=== PATIENT | female | born 1945 | race African-American/Black ===

== ENCOUNTER 2023-06-12 17:58 | Inpatient (IN) | payer OTHER ==
[2023-06-12] MEDS ORDERED: Ondansetron ODT 4 MG TAB SL PRN (19:00)
[2023-06-12] MEDS ORDERED: Ondansetron PF 4 MG/2 ML Vial IVP PRN (19:00)
[2023-06-12] MEDS ORDERED: Acetaminophen 325 MG TAB PO PRN (19:00)
[2023-06-12] MEDS ORDERED: hydrALAZINE 20 MG/ML VIAL SLOW IVP SCH (19:00)
[2023-06-12] MEDS ORDERED: Albuterol 200 PUFF (6.7GM INHALER) INH PRN (19:51)
[2023-06-12] MEDS ORDERED: hydrALAZINE 20 MG/ML VIAL SLOW IVP PRN (20:02)
[2023-06-12] MEDS: Atorvastatin Calcium 40 MG TAB PO SCH (20:46)
[2023-06-12] MEDS ORDERED: Carvedilol 25 MG TAB PO SCH (21:00)
[2023-06-12] MEDS ORDERED: Enoxaparin 120 MG/0.8 ML SYRINGE SC SCH (21:00)
[2023-06-13] MEDS ORDERED: Enoxaparin 120 MG/0.8 ML SYRINGE SC SCH (00:01)
[2023-06-13] MEDS: Nitroglycerin 2% Ointment 1 INCH/1 GM Packet TOP SCH ×2 (00:08→06:24)
[2023-06-13 05:25] LABS: #Eosinphils 0.2 thou/uL (0.0-0.7); #Neutrophils 3.9 thou/uL (1.40-6.50); %Basophils 0.4 % (0.0-1.0); %Eosinophils 2.3 % (0.0-10.0); %Lymphocytes 31.4 % (21.0-51.0); %Neutrophils 52.5 % (42.0-75.0); Hematocrit 36.5 % (36.0-47.0); Hemoglobin 12.2 g/dL (12.0-16.0); Mean Corpuscular HGB CONC 33.4 g/dL (32.0-36.0); Mean Corpuscular Hemoglobin 29.3 pg (27.0-31.0); Mean Corpuscular Volume 87.5 fl (78.0-98.0); Mean Platelet Volume 10.9 fL (7.4-10.4); Platelet Count 229 10x3/uL (130-400); RBC Distribution Width 14.1 % (11.5-14.5); Red Blood Cell (RBC) Count 4.17 mill/uL (4.20-5.40); White Blood Cell (WBC) Count 7.4 10x3/uL (4.8-10.8)
[2023-06-13 05:53] LABS: Anion Gap 15 mmol/L (10-20); BUN (Urea Nitrogen) 9 mg/dL (9.8-20.1); Calc. Creatinine Clearance 94 mL/min (70-130); Calcium 9.4 mg/dL (7.8-10.44); Carbon Dioxide 25 mmol/L (23-31); Chloride 105 mmol/L (98-107); Estimated GFR 70; Glucose 96 mg/dL (83-110); Potassium 2.9 mmol/L (3.5-5.1); Sodium 142 mmol/L (136-145)
[2023-06-13 05:57] LABS: Troponin I 0.023 ng/mL (< 0.028)
[2023-06-13] MEDS: Furosemide 40 MG/4 ML VIAL SLOW IVP SCH ×2 (06:23→16:40)
[2023-06-13] MEDS: HYDROcodone/Acetaminophen 10/325 mg Tablet PO PRN ×2 (06:27→14:04)
[2023-06-13] MEDS ORDERED: Lisinopril 10 MG TAB PO SCH (09:00)
[2023-06-13] MEDS ORDERED: Potassium Chloride 20 MEQ TAB PO SCH (10:00)
[2023-06-13] MEDS: Aspirin 81 mg Enteric Coated Tablet PO SCH (11:27)
[2023-06-13] MEDS: Gabapentin 300 MG CAP PO SCH (11:27)
[2023-06-13] MEDS: Lisinopril 20 MG TAB PO SCH (11:28)
[2023-06-13] MEDS: Penicillin V Potassium 250 MG TAB PO SCH (11:30)
[2023-06-13] MEDS: Enoxaparin 120 MG/0.8 ML SYRINGE SC SCH (16:39)
[2023-06-13] MEDS: Atorvastatin Calcium 40 MG TAB PO SCH (20:37)
[2023-06-14] MEDS: Enoxaparin 120 MG/0.8 ML SYRINGE SC SCH ×2 (01:35→12:48)
[2023-06-14 05:05] LABS: Anion Gap 14 mmol/L (10-20); BUN (Urea Nitrogen) 14 mg/dL (9.8-20.1); Calc. Creatinine Clearance 74 mL/min (70-130); Calcium 9.7 mg/dL (7.8-10.44); Carbon Dioxide 29 mmol/L (23-31); Chloride 101 mmol/L (98-107); Estimated GFR 53; Glucose 103 mg/dL (83-110); Magnesium 1.9 mg/dL (1.6-2.6); Potassium 3.1 mmol/L (3.5-5.1); Sodium 141 mmol/L (136-145)
[2023-06-14] MEDS ORDERED: Electrolyte Replacement Protocol 1 EACH FS SCH (05:24)
[2023-06-14] MEDS: Furosemide 40 MG/4 ML VIAL SLOW IVP SCH ×2 (05:43→12:48)
[2023-06-14 06:19] LABS: Bacteria/HPF 4+ HPF (None Seen); Bilirubin Negative (Negative); Blood, Urine Negative (Negative); CAUTI Indications for Culture Dysuria,urgency,freq; Clarity Turbid (Clear); Glucose, Urine (Dipstick) Normal (Negative); Ketone, Urine Negative (Negative); Leukocyte 500 Leu/uL (Negative); Nitrite Negative (Negative); Protein, Urine (Dipstick) 50 mg/dL (Neg-Trace); RBC/HPF 0-3 HPF (0-3); Squamous Epithelial 0-3 HPF (0-3); Urobilinogen Normal mg/dL (Less than 2); WBC/HPF Greater than 50 HPF (0-3)
[2023-06-14 06:23] LABS: Urine Culture Reflex Yes Yes
[2023-06-14] MEDS ORDERED: Potassium Chloride 20 MEQ TAB PO SCH (08:00)
[2023-06-14] MEDS ORDERED: Magnesium 2 GM/50 ML(in water) 2 GM in Premix Bag 1 BAG IVPB SCH (08:00)
[2023-06-14] MEDS: Aspirin 81 mg Enteric Coated Tablet PO SCH (08:19)
[2023-06-14] MEDS: Gabapentin 300 MG CAP PO SCH (08:19)
[2023-06-14] MEDS: Lisinopril 20 MG TAB PO SCH (08:20)
[2023-06-14] MEDS: Penicillin V Potassium 250 MG TAB PO SCH (08:20)
[2023-06-14] MEDS: HYDROcodone/Acetaminophen 10/325 mg Tablet PO PRN (08:45)
[2023-06-14] MEDS: cefTRIAXone\\ROCEPHIN 1 GM in Sodium Chloride 0.9% 100 ML IVPB SCH (12:48)
[2023-06-14] MEDS: Atorvastatin Calcium 40 MG TAB PO SCH (20:22)
[2023-06-15] MEDS: Enoxaparin 120 MG/0.8 ML SYRINGE SC SCH (02:20)
[2023-06-15] MEDS: HYDROcodone/Acetaminophen 10/325 mg Tablet PO PRN ×2 (04:01→16:39)
[2023-06-15 05:19] LABS: Anion Gap 13 mmol/L (10-20); BUN (Urea Nitrogen) 15 mg/dL (9.8-20.1); Calc. Creatinine Clearance 80 mL/min (70-130); Calcium 9.8 mg/dL (7.8-10.44); Carbon Dioxide 28 mmol/L (23-31); Chloride 101 mmol/L (98-107); Estimated GFR 58; Glucose 108 mg/dL (83-110); Magnesium 2.1 mg/dL (1.6-2.6); Potassium 3.1 mmol/L (3.5-5.1); Sodium 139 mmol/L (136-145)
[2023-06-15] MEDS: Furosemide 40 MG/4 ML VIAL SLOW IVP SCH (05:42)
[2023-06-15] MEDS ORDERED: Potassium Chloride 20 MEQ TAB PO SCH ×2 (08:00)
[2023-06-15] MEDS: Potassium Chloride 20 MEQ TAB PO SCH ×2 (08:54→16:40)
[2023-06-15] MEDS: Gabapentin 300 MG CAP PO SCH (08:55)
[2023-06-15] MEDS: Aspirin 81 mg Enteric Coated Tablet PO SCH (08:55)
[2023-06-15] MEDS: Lisinopril 20 MG TAB PO SCH (08:56)
[2023-06-15] MEDS ORDERED: FLU VACC QS2023(65UP)/MF59C/PF 60 MCG/0.5 ML SYRINGE IM ONE (09:00)
[2023-06-15] MEDS ORDERED: Milk Of Magnesia 30 ML UDCUP PO PRN (10:26)
[2023-06-15] MEDS ORDERED: Milk Of Magnesia 30 ML UDCUP PO SCH (10:30)
[2023-06-15] MEDS: cefTRIAXone\\ROCEPHIN 1 GM in Sodium Chloride 0.9% 100 ML IVPB SCH (13:38)
[2023-06-15] MEDS: Furosemide 40 MG TAB PO SCH (13:39)
[2023-06-15 18:23] LABS: Potassium 3.5 mmol/L (3.5-5.1)
[2023-06-15] MEDS: Atorvastatin Calcium 40 MG TAB PO SCH (21:00)
[2023-06-15] MEDS: Apixaban 5 MG TAB PO SCH (21:00)
[2023-06-16 05:29] LABS: Anion Gap 14 mmol/L (10-20); BUN (Urea Nitrogen) 15 mg/dL (9.8-20.1); Calc. Creatinine Clearance 69 mL/min (70-130); Carbon Dioxide 27 mmol/L (23-31); Chloride 103 mmol/L (98-107); Estimated GFR 49; Glucose 99 mg/dL (83-110); Magnesium 1.9 mg/dL (1.6-2.6); Potassium 3.7 mmol/L (3.5-5.1); Sodium 140 mmol/L (136-145)
[2023-06-16 08:16] VITALS: TEMP 98
[2023-06-16] MEDS: Apixaban 5 MG TAB PO SCH (08:16)
[2023-06-16] MEDS: Potassium Chloride 20 MEQ TAB PO SCH (08:16)
[2023-06-16] MEDS: Aspirin 81 mg Enteric Coated Tablet PO SCH (08:16)
[2023-06-16] MEDS: Furosemide 40 MG TAB PO SCH (08:16)
[2023-06-16] MEDS: Lisinopril 20 MG TAB PO SCH (08:16)
[2023-06-16] MEDS: Gabapentin 300 MG CAP PO SCH (08:17)
[2023-06-16 11:42] VITALS: BP 118/66
== END 2023-06-16 11:00 | disposition home or self-care (01) | DRG 291 ==
LOC: 2SW 17:58
PROVIDERS: ADMIT Internal Medicine; ATTEND Internal Medicine Critical Care Medicine
DX: I11.0 Hypertensive heart disease with heart failure (principal); I50.33 Acute on chronic diastolic (congestive) heart failure; N39.0 Urinary tract infection, site not specified; I16.0 Hypertensive urgency; I48.0 Paroxysmal atrial fibrillation; E87.6 Hypokalemia; E78.5 Hyperlipidemia, unspecified; M19.90 Unspecified osteoarthritis, unspecified site; E66.01 Morbid (severe) obesity due to excess calories; Z68.38 Body mass index [BMI] 38.0-38.9, adult; Z88.5 Allergy status to narcotic agent; Z79.899 Other long term (current) drug therapy; K21.9 Gastro-esophageal reflux disease without esophagitis; Z90.49 Acquired absence of other specified parts of digestive tract; G62.9 Polyneuropathy, unspecified; Z79.82 Long term (current) use of aspirin
CPT/HCPCS: 36415; 80048; 81001; 83735; 84443; 84484; 85025; 87086; 93306; 97139; J0360; J0696; J1650; J1940; J3475; J3490